=== PATIENT | male | born 1980 | race Asian ===

== ENCOUNTER 2017-04-10 23:04 | Inpatient (IN) | payer MEDICAID, OTHER ==
[~2017-04-10] VITALS: Ht 177.8 cm; Wt 131.4 kg
[2017-04-11] MEDS ORDERED: LABETALOL HCL 20MG INJ IV ONE
[2017-04-11 00:15] LABS: ADD SCAN DIFF NO
[2017-04-11 00:16] LABS: BASOPHILS % 0.3 % (0.0-2.0); EOSINOPHILS # 0.3 10^3/ul (0.0-0.5); EOSINOPHILS % 2.1 % (0.0-7.0); HEMATOCRIT 44.8 % (42.0-52.0); HEMOGLOBIN 15.5 g/dl (14.0-18.0); LYMPHOCYTES # 1.9 10^3/ul (0.8-2.9); LYMPHOCYTES % 13.5 % (15.0-51.0); MEAN CORPUSCULAR HGB CONC 34.6 g/dl (32.0-37.0); MEAN PLATELET VOLUME 10.2 fl (7.4-10.4); MONOCYTE # 1.1 10^3/ul (0.3-0.9); MONOCYTES % 7.8 % (0.0-11.0); NEUTROPHIL # 10.6 10^3/ul (1.6-7.5); NEUTROPHILS % 75.6 % (39.0-77.0); PLATELET COUNT 255 10^3/UL (140-415); RED BLOOD COUNT 5.53 10^6/ul (4.70-6.10); RED CELL DISTRIBUTION WIDTH 13.7 % (11.5-14.5); WHITE BLOOD COUNT 14.1 10^3/ul (4.8-10.8)
--- NOTE | 2017-04-11 00:16 | RADRPT ---
PROCEDURE: CT Brain without contrast. CLINICAL INDICATION: Headache TECHNIQUE: A CT of the brain was performed utilizing axial imaging from the skull base through the vertex without IV contrast. Multiplanar reformatted images were made. Images were reviewed on a rimidi workstation. The CTDIvol is 44.58 mGy and the DLP is 720.23 mGycm. One or more the following dose reduction techniques were utilized: Automated exposure control, adjus tment of the mA and / or kV according to patient's size, or use of iterative reconstruction techniqu e. COMPARISON: None FINDINGS: There is no intracranial hemorrhage, mass effect, or midline shift. No extra-axial fluid collection is seen. The ventricles and sulci are normal in size and configuration. The density of the brain is normal, and the high white matter differentiation appears well-preserved. The visualized paranasal sinuses and osseous structures are grossly unremarkable. IMPRESSION: 1. No evidence of acute intracranial pathology. 2. The brain is normal in appearance. RPTAT: HJES .Boubacar Faust MD, MD Date Time Electronically viewed and signed by .Boubacar Faust MD, on 04/11/2017 00:16 .S/
--- NOTE | 2017-04-11 00:16 | RADRPT ---
PROCEDURE: CHEST - 1 VIEW CLINICAL INDICATION: 37-year-old male with chest pain. TECHNIQUE: A single frontal AP supine portable view of the chest was performed. The images were r eviewed on a PACS workstation. COMPARISON: None. FINDINGS: The cardiomediastinal silhouette has a normal appearance. There is a shallow inspiration with mild e levation right hemidiaphragm. There is no evidence for an infiltrate. There is no evidence for lashae estive heart failure. There is no evidence for pneumothorax. The osseous structures are intact. IMPRESSION: No evidence for active cardiopulmonary disease. .Mc Cárdenas MD, MD Date Time Electronically viewed and signed by .Mc Cárdenas MD, on 04/11/2017 00:15 ./
[2017-04-11 00:26] LABS: INR 0.99; PROTIME 13.1 Sec (12.2-14.2)
[2017-04-11 00:27] LABS: PARTIAL THROMBOPLASTIN TIME 32.3 Sec (25.0-35.0)
[2017-04-11 00:32] LABS: ALBUMIN 4.7 g/dl (3.3-4.9); ALBUMIN/GLOBULIN RATIO 5.22; BILIRUBIN,INDIRECT 0.4 mg/dl (0-1.1); BILIRUBIN,TOTAL 0.4 mg/dl (0.2-1.3); CALCIUM 9.2 mg/dl (8.4-10.2); CREATININE 1.44 mg/dl (0.61-1.24); TOTAL PROTEIN 5.6 g/dl (6.1-8.1)
[2017-04-11 00:44] LABS: TROPONIN-I 0.069 ng/ml (0.00-0.12)
[2017-04-11 00:52] LABS: POTASSIUM 2.8 mmol/L (3.5-5.1)
[2017-04-11] MEDS ORDERED: ASPI-664 PO (01:25)
[2017-04-11] MEDS: POTASSIUM CHLORIDE 250 ML IVPB SCH ×2 (01:26→05:36)
[2017-04-11] MEDS ORDERED: SOD CHLORIDE 0.9% 100 ML ONE (01:41)
[2017-04-11] MEDS ORDERED: IOHEXOL 100 ML ONE (01:41)
[2017-04-11] MEDS ORDERED: hydrALAzine 20 MG INJ IV ONE (02:30)
--- NOTE | 2017-04-11 02:50 | RADRPT ---
PROCEDURE: CTA head and neck. CLINICAL INDICATION: Neck pain, headache. TECHNIQUE: Direct spiral 0.63 mm axial sections were obtained through the cervical and intracrania l vasculature with the use of 85 cc of Omnipaque 350 nonionic intravenous contrast material. Axial MIP, coronal, and sagittal reformations were obtained. The images were reviewed on a PACS workstatio n. CTDIvol: 4.12, 41.25, 19.54 mGy. DLP: 850.78 mGy-cm. COMPARISON: Brain CT performed earlier on the same date. FINDINGS: CTA neck: The branching pattern of the aortic arch is normal. The bilateral cervical carotid and swati tebral arteries are widely patent. No atherosclerotic plaque or dissection is identified. There is no aneurysmal dilatation of these vessels. CTA head: The bilateral ICAs, ACAs, MCAs, and meter inspector are widely patent. The vertebrobasilar system is patent. The visualized cerebellar arteries are unremarkable. No intracranial aneurysm or vascular malformation is seen. IMPRESSION: Unremarkable CT angiogram of the head and neck. Measurements of cervical internal carotid artery stenosis were performed according to NASCET criteri a, with reference to distal ICA diameter. RPTAT: HTAR .Jj Chang MD, Date Time Electronically viewed and signed by .jJ Chang MD, on 04/11/2017 02:50 .R/
--- NOTE | 2017-04-11 04:17 | ERA ---
ER Documentation Chief Complaint Date/Time DATE: 04/11/17 TIME: 04:16 Chief Complaint sudden neck pop then near syncope lasting 1 1/2 hrs, not feeling well HPI 37-year-old male who said he felt a "pop" in his neck. He said is been feeling like is going to pass out for the past hour and half since then. Noted to have severely elevated blood pressures. Patient has history of elevated blood pressure, however has not been on any meds and has not followed up with any primary care physician. Denies any chest pain. Denies any focal neurological complaint. Denies any other current issue. ROS All systems reviewed and are negative except as per history of present illness. Medications Home Meds Reported Medications Aspirin* (Aspirin* EC) 81 Mg Tablet.dr, 81 MG PO DAILY, TAB 04/11/17 Allergies Allergies: Coded Allergies: No Known Drug Allergies (Verified Allergy, Unknown, 04/10/17) PMhx/Soc History of Surgery: Yes (appendectomy, cholecystectomy) Hx Cardiac Disorders: Yes (HTN) Hx Alcohol Use: No Hx Substance Use: No Hx Tobacco Use: Yes Smoking Status: Current every day smoker Physical Exam Vitals Vital Signs Date Time Temp Pulse Resp B/P Pulse Ox O2 Delivery O2 Flow Rate FiO2 04/11/17 02:48 106 25 170/91 98 Room Air 04/11/17 02:04 96 27 191/117 96 Room Air 04/11/17 01:08 94 29 211/124 97 Room Air 04/11/17 00:05 106 22 212/128 99 Room Air 04/10/17 23:28 98.5 96 18 220/131 98 Physical Exam Const: [] Head: Atraumatic Eyes: Normal Conjunctiva ENT: Normal External Ears, Nose and Mouth. Neck: Full range of motion..~ No meningismus. Resp: Clear to auscultation bilaterally Cardio: Regular rate and rhythm, no murmurs Abd: Soft, non tender, non distended. Normal bowel sounds Skin: No petechiae or rashes Back: No midline or flank tenderness Ext: No cyanosis, or edema Neur: Awake and alert Psych: Normal Mood and Affect Result Diagram: 04/11/17 0001 04/11/17 0001 Results 24 hrs Laboratory Tests Test 04/11/17 00:01 White Blood Count 14.110^3/ul Red Blood Count 5.5310^6/ul Hemoglobin 15.5g/dl Hematocrit 44.8% Mean Corpuscular Volume 81.0fl Mean Corpuscular Hemoglobin 28.0pg Mean Corpuscular Hemoglobin Concent 34.6g/dl Red Cell Distribution Width 13.7% Platelet Count 88880^3/UL Mean Platelet Volume 10.2fl Neutrophils % 75.6% Lymphocytes % 13.5% Monocytes % 7.8% Eosinophils % 2.1% Basophils % 0.3% Nucleated Red Blood Cells % 0.0/100WBC Neutrophils # 10.610^3/ul Lymphocytes # 1.910^3/ul Monocytes # 1.110^3/ul Eosinophils # 0.310^3/ul Basophils # 0.010^3/ul Nucleated Red Blood Cells # 0.010^3/ul Prothrombin Time 13.1Sec Prothrombin Time Ratio 1.0 INR International Normalized Ratio 0.99 Activated Partial Thromboplast Time 32.3Sec Sodium Level 138mmol/L Potassium Level 2.8mmol/L Chloride Level 102mmol/L Carbon Dioxide Level 26mmol/L Anion Gap 13 Blood Urea Nitrogen 15mg/dl Creatinine 1.44mg/dl Glucose Level 227mg/dl Calcium Level 9.2mg/dl Total Bilirubin 0.4mg/dl Direct Bilirubin 0.00mg/dl Indirect Bilirubin 0.4mg/dl Aspartate Amino Transf (AST/SGOT) 32IU/L Alanine Aminotransferase (ALT/SGPT) 39IU/L Alkaline Phosphatase 75IU/L Troponin I 0.069ng/ml B-Type Natriuretic Peptide 219PG/ML Total Protein 5.6g/dl Albumin 4.7g/dl Globulin 0.90g/dl Albumin/Globulin Ratio 5.22 Current Medications Medications (Trade) Dose Ordered Sig/Gerard Route PRN Reason Start Time Stop Time Status Last Admin Dose Admin Labetalol HCl 20 mg 20 mg ONCE ONCE IV 04/11/17 00:00 04/11/17 00:01 DC 04/11/17 00:26 Potassium Chloride (KCl 40 MEQ/250 ML NS) 250 ml @ 62.5 mls/hr Q4H IVPB 04/11/17 01:00 04/11/17 08:59 04/11/17 01:26 Hydralazine HCl (Apresoline) 20 mg ONCE ONCE IV 04/11/17 02:30 04/11/17 02:31 DC 04/11/17 02:26 Procedures/MDM EKG: Rate/Rhythm: Normal Sinus Rhythm QRS, ST, T-waves: No changes consistent w/ acute ischemia Impression: No evidence of ischemia or arrhythmia Chest X-ray 1V Interpreted by me: Soft Tissue: No acute abnormalities Bones: No acute abnormalities Mediastinum/Cardiac Silhouette/Lungs: No acute abnormalities CT of the head, CT angiogram of the brain and CT angiogram neck were negative Medical decision-makin-year-old male with severe hypertensive emergency. Patient will be admitted to telemetry to hospitalist. Critical Care: Time: 45 minutes Treatments/Evaluations: Close monitoring and treatment of unstable vital signs, cardiorespiratory, and neurologic status, while maintaining tight balance of fluid, respiratory, and cardiac interventions. Departure Diagnosis: Primary Impression: Hypertensive emergency Additional Impressions: Acute renal failure Qualified Code: N17.9 - Acute renal failure, unspecified acute renal failure type Hypokalemia Condition: Serious PHILIP FULLER Apr 11, 2017 04:17
--- NOTE | 2017-04-11 10:29 | HP ---
Date/Time of Note Date/Time of Note DATE: 04/11/17 TIME: 10:29 Assessment/Plan VTE Prophylaxis VTE Prophylaxis Intervention: SCD's Lines/Catheters IV Catheter Type (from Nrs): Saline Lock Assessment/Plan Assessment/Plan A: 37 yo M with previous h/o htn presents with c/o headache in the setting of markedly elevated BP. Clinical scenario consistent with hypertensive urgency as no evidence of end organ damage at this time (CT head without evidence of stroke ) P: #HTN urgency: resume home meds slowly, PRN clonidine in the interim -given c/o snoring will obtain nocturnal pulse ox as BRITTANY eval as this is a risk factor for HTN -check UA for blood and protein #elevated Cr: baseline unk -PO fluids -check UA for protein #hypokalemia: etio unclear replete and recheck #preDM -check a1c #tob abuse: declined NRT sw consult for help with insurance dispo pending improvement in BP, anticipate 2 midnight length of stay HPI/ROS Admit Date/Time Admit Date/Time Hx of Present Illness Chief complaint: dizziness HPI: 37 yo M with pmhx HTN, preDM, obesity, tobacco abuse, snoring presents with 1 day of neck pain, dizziness. Pt states he was with his mom in the backyard smoking a cigarette last night when he felt a "snap" in his neck. After this he was able to walk but felt a little dizzy. Pt waited till his mother went to sleep then called EMS. On arrival to the ER pt's BP noted to be quite elevated with SBP 200s. Of note, pt states he had previously been on 3 anti hypertensives (metoprolol XL , lisinopril, and norvasc) but that he's been off of them for a year since he lost his job and his insurance. Pt currently reports a headache. No SOB, +monthly episodes of L sided chest discomfort though none currently, no dysuria or hematuria, no numbness/tingling/ weakness. ROS 10pROS neg except as per HPI PMH/Family/Social Past Medical History PMHx: HTN, preDM, obesity, tob abuse Social History smokes 10 cigs/daily Smoking Status: Current every day smoker Exam/Review of Systems Vital Signs Vitals Vital Signs Date Time Temp Pulse Resp B/P Pulse Ox O2 Delivery O2 Flow Rate FiO2 04/11/17 05:15 102 21 159/101 96 Room Air 04/10/17 23:28 98.5 Exam Exam pleasant, nad laying in bed CN 2-12 intact bl 5/5 strength bl UEs and LEs no mrg lungs clear obese no rashes no le edema responds to questions appropriately labs: Cr mid 1s, K low, gluc 220s Imaging: CT head/neck without bleed or evidence of infarct Labs Result Diagram: 04/11/17 0001 04/11/17 0001 KRISSY BRAVO MD Apr 11, 2017 10:29
[2017-04-11] MEDS ORDERED: DOCUSATE SODIUM 100 MG CAP PO PRN (10:30)
[2017-04-11] MEDS ORDERED: NA PHOSPHATE/BIPHOS 133 ML ENEMA PR PRN (10:30)
[2017-04-11] MEDS ORDERED: BISACODYL (EC) 5 MG TAB PO PRN (10:30)
[2017-04-11] MEDS ORDERED: NACL 0.9% 3 ML SYG IV SCH (10:30)
[2017-04-11] MEDS ORDERED: MAGNESIUM HYDROXIDE 30ML CUP PO PRN (10:30)
[2017-04-11] MEDS ORDERED: BISACODYL 10 MG SUPP PR PRN (10:30)
[2017-04-11 11:21] VITALS: TEMP 98.5
[2017-04-11] MEDS: HEPARIN 5,000 UNIT/0.5 ML VIAL SC SCH ×2 (13:48→21:51)
[2017-04-11] MEDS ORDERED: NIFEdipine (XL) 30 MG TAB PO SCH (15:00)
[2017-04-11 15:46] VITALS: Ht 177.8 cm; Wt 131.4 kg
[2017-04-11 16:03] VITALS: PULSE 96
[2017-04-11 16:22] VITALS: BP 189/115; PULSE 95
[2017-04-11] MEDS ORDERED: ACETAMINOPHEN 325 MG TAB PO PRN ×2 (17:30→21:30)
[2017-04-11 19:48] VITALS: BP 204/116; RESP 20
[2017-04-11 20:01] VITALS: PULSE 101
[2017-04-11 20:09] VITALS: BP 145/89
[2017-04-11] MEDS: HYDROCODONE/APAP (5/325) TAB PO PRN (20:13)
[2017-04-12] VITALS (16 sets, daily range): BP systolic 153–187; BP diastolic 82–122; PULSE 65–78; RESP 16–20
[2017-04-12] MEDS: HEPARIN 5,000 UNIT/0.5 ML VIAL SC SCH ×3 (05:48→21:37)
[2017-04-12] MEDS: HYDROCODONE/APAP (5/325) TAB PO PRN ×2 (05:51→23:43)
[2017-04-12 08:06] LABS: CALCIUM 9.5 mg/dl (8.4-10.2); CREATININE 1.33 mg/dl (0.61-1.24); POTASSIUM 3.4 mmol/L (3.5-5.1)
[2017-04-12] MEDS: LISINOPRIL 10 MG TAB PO SCH (09:00)
[2017-04-12] MEDS: ASPIRIN (EC) 81 MG TAB PO SCH (09:00)
[2017-04-12] MEDS: METOPROLOL (XL) 25 MG TAB PO SCH (09:01)
--- NOTE | 2017-04-12 12:23 | RADRPT ---
Echocardiogram Report Patient Name: ROBE RODRIGUEZ Gender: Male Date: 1980 Study Date: 11-Apr-2017 Administration Internship: [facility] Location: [facility] Ref. Physician: KRISSY BRAVO Quality: Technically Difficult Study Procedures: Transthoracic echocardiogram with complete 2D, M-Mode, and doppler examination. Indications: Syncope. 2D/M Mode Doppler Measurement Value Normal Ranges Measurement Value Normal Ranges LVIDd 2D 5.9 3.5 - 5.6 cm AV Peak Anup 1.5 m/sec LVIDs 2D 4.2 2.1 - 4.1 cm AV Peak PG 9.0 mmHg LVPWd 2D 1.8 0.6 - 1.1 cm LVOT Peak Anup 0.9 m/sec IVSd 2D 1.9 0.6 - 1.1 cm LVOT Peak PG 3.2 mmHg AoR Diam 2D 2.9 2.0 - 3.7 cm MV E Peak Anup 0.7 m/sec EDV 2D 171.1 cm3 MV A Peak Anup 0.9 m/sec ESV 2D 74.0 cm3 MV E/A 0.8 LA Dimen 2D 4.5 2.3 - 4.0 cm MV Decel Time 77 msec MV Decel Nuckolls 10 MV E/A 0.8 Findings Left Ventricle: Lower limits of normal systolic function. Moderate to severe concentric left ventricular hypertrophy. Mild enlargement of left ventricle cavity. Ejection fraction is visually estimated at 50 %. Tissue Doppler/Mitral Doppler indices are consistent with impaired relaxation (Stage I diastolic dysfunction). Right Ventricle: Normal right ventricular size. Normal right ventricular systolic function. Left Atrium: There is mild enlargement of left atrium. Right Atrium: The right atrium is normal in size. Mitral Valve: Mitral valve leaflets appear mildly thickened. Trace mitral regurgitation. Aortic Valve: Normal appearance of the aortic valve. No significant aortic stenosis or insufficiency. Tricuspid Valve: Normal appearance and function of the tricuspid valve with trace physiologic regurgitation. Pericardium: Normal pericardium with no significant pericardial effusion. Aorta: Normal aortic root. IVC: Normal size and normal respiratory collapse consistent with normal right atrial pressure. Conclusions 1.Lower limits of normal systolic function. Moderate to severe concentric left ventricular hypertrophy. Mild enlargement of left ventricle cavity. Ejection fraction is visually estimated at 50 %. Tissue Doppler/Mitral Doppler indices are consistent with impaired relaxation (Stage I diastolic dysfunction). 2.Normal right ventricular size. Normal right ventricular systolic function. 3.There is mild enlargement of left atrium. 4.The right atrium is normal in size. 5.No significant valvular stenosis or regurgitation seen. 6.Normal pericardium with no significant pericardial effusion. Electronically Signed By: Genaro Delgado 12-Apr-2017 12:23:07 -0700 Patient Name: ROBE RODRIGUEZ Study Date: 11-Apr-[id number]
[2017-04-12] MEDS ORDERED: AMLODIPINE 10 MG TAB PO ONE (14:00)
[2017-04-12] MEDS ORDERED: MECLIZINE 25 MG TAB PO PRN (14:00)
[2017-04-12] MEDS ORDERED: POTASSIUM CHLORIDE (SR) 20 MEQ TAB PO STA (15:57)
--- NOTE | 2017-04-12 17:13 | PN ---
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 #hypokalemia: etio unclear replete and recheck #preDM -check a1c #tob abuse: declined NRT KCl 40mEQ PO X1 for hypokalemia, Cervical spine series for neck pain and dizziness BP stable, start amlodipine 10mg po daily ffor better pain control SW saw pt for insurance application Subjective 24 Hr Interval Summary Free Text/Dictation c/o dizzines, headache, BP stable, C/o neck pain Exam/Review of Systems Vital Signs Vitals Vital Signs Date Time Temp Pulse Resp B/P Pulse Ox O2 Delivery O2 Flow Rate FiO2 04/12/17 16:01 73 04/12/17 15:41 98.4 19 172/111 98 04/12/17 05:00 Room Air Intake and Output 04/11/17 04/11/17 04/12/17 15:00 23:00 07:00 Intake Total 240 ml 650 ml Output Total 250 ml Balance -10 ml 650 ml Results Result Diagram: 04/11/17 0001 04/12/17 0602 Results 24 hrs Laboratory Tests Test 04/12/17 06:02 Sodium Level 142 Potassium Level 3.4 L Chloride Level 104 Carbon Dioxide Level 30 Anion Gap 11 Blood Urea Nitrogen 16 Creatinine 1.33 H Glucose Level 126 # Hemoglobin A1c 6.6 H Calcium Level 9.5 Medications Medications Current Medications Docusate Sodium (Colace) 100 mg Q12H PRN PO CONSTIPATION; Start 04/11/17 at 10: 30 Magnesium Hydroxide (Milk Of Mag) 30 ml DAILY PRN PO CONSTIPATION; Start at 10:30 Bisacodyl (Dulcolax) 5 mg DAILY PRN PO CONSTIPATION; Start 04/11/17 at 10:30 Bisacodyl (Dulcolax Supp) 10 mg DAILY PRN IN CONSTIPATION; Start 04/11/17 at 10 :30 Sodium Biphosphate/ Sodium Phosphate (Fleet Enema) 133 ml DAILY PRN IN CONSTIPATION; Start 04/11/17 at 10:30 Heparin Sodium (Porcine) (Heparin (5000 Units/0.5 ml)) 5,000 unit Q8 SC Last administered on 04/12/17 14:24; Admin Dose 5,000 UNIT; Start 04/11/17 at 14:00 Aspirin (Halfprin) 81 mg DAILY PO Last administered on 04/12/17 09:00; Admin Dose 81 MG; Start 04/12/17 at 09:00 Clonidine (Catapres) 0.1 mg Q6H PRN PO HTN Last administered on 04/11/17 18:05 ; Admin Dose 0.1 MG; Start 04/11/17 at 17:30 Lisinopril (Zestril) 10 mg DAILY PO Last administered on 04/12/17 09:00; Admin Dose 10 MG; Start 04/12/17 at 09:00 Metoprolol Succinate (Toprol Xl) 12.5 mg DAILY PO Last administered on 09:01; Admin Dose 12.5 MG; Start 04/12/17 at 09:00 Acetaminophen (Tylenol Tab) 650 mg Q4H PRN PO PAIN AND OR ELEVATED TEMP; Start 04/11/17 at 21:30 Acetaminophen/ Hydrocodone Bitart ([place] (5/325)) 1 tab Q6H PRN PO PAIN LEVEL 6 -10 Last administered on 04/12/17 05:51; Admin Dose 1 TAB; Start 04/11/17 at 19 :00 Amlodipine Besylate (Norvasc) 10 mg DAILY PO ; Start 04/13/17 at 09:00 Meclizine HCl (Antivert) 25 mg TID PRN PO dizziness ; Start 04/12/17 at 14:00 SYLVIA ESPINOZA MD Apr 12, 2017 17:13
[2017-04-13 00:18] VITALS: BP 143/94; RESP 18
[2017-04-13] MEDS: HEPARIN 5,000 UNIT/0.5 ML VIAL SC SCH ×2 (06:08→14:00)
[2017-04-13 07:12] LABS: CALCIUM 9.6 mg/dl (8.4-10.2); CREATININE 1.49 mg/dl (0.61-1.24); POTASSIUM 3.2 mmol/L (3.5-5.1)
[2017-04-13] MEDS: LISINOPRIL 10 MG TAB PO SCH (08:27)
[2017-04-13] MEDS: ASPIRIN (EC) 81 MG TAB PO SCH (08:27)
[2017-04-13] MEDS: METOPROLOL (XL) 25 MG TAB PO SCH (08:28)
[2017-04-13 08:49] VITALS: BP 151/94; RESP 18
[2017-04-13] MEDS ORDERED: AMLODIPINE 10 MG TAB PO SCH (09:00)
--- NOTE | 2017-04-13 10:07 | RADRPT ---
PROCEDURE: XR Cervical Spine. CLINICAL INDICATION: Trauma. TECHNIQUE: AP, lateral and odontoid views of the cervical spine were performed. The images were re viewed on a PACS workstation. COMPARISON: CTA neck 04/11/2017 FINDINGS: There is trace anterolisthesis of C4 on C5 and C5 on C6. There are small anterior osteophytes with mild to moderate narrowing at C5-6 and C6-7. The vertebral body height and osseous mineralization a re normal. There is no evidence of fracture or dislocation. There is diffuse mild to moderate facet arthropathy. There is preservation of the remaining intervertebral disc spaces. There are no abnorma l calcifications. The prevertebral soft tissues are normal. No radiopaque foreign bodies are identif ied. IMPRESSION: 1. Mild to moderate degenerative disc disease at C5-6 and C6-7 with grade 1 anterolisthesis of C5 o n C6. 2. Diffuse mild to moderate facet spondylosis. 3. No acute fracture. RPTAT: DD .Karel Saldana MD, MD Date Time Electronically viewed and signed by .Karel Saldana MD, on 04/13/2017 10:06 .S/
[2017-04-13] MEDS ORDERED: POTASSIUM CHLORIDE (SR) 20 MEQ TAB PO STA (13:52)
--- NOTE | 2017-04-13 14:06 | PDOCDIS ---
Discharge Instructions CONDITION Patient Condition: Good HOME CARE INSTRUCTIONS: Special Diet: low salt diet ACTIVITY: Activity Restrictions: Slowly Increase Activity Rest between Activity Avoid heavy lifting Avoid Heavy Housework FOLLOW UP/APPOINTMENTS Appointments follow up with his own PMD in 1-2 week. Follow up with Dr.kalpesh Espinoza In 2-3 weeks SYLVIA ESPINOZA MD Apr 13, 2017 14:06
[2017-04-13] MEDS ORDERED: AMLO-147 PO (14:07)
[2017-04-13] MEDS ORDERED: METO25TA7 PO (14:07)
[2017-04-13] MEDS ORDERED: LISI10TA2 PO (14:07)
== END 2017-04-13 16:44 | disposition home or self-care (01) | DRG 305 ==
LOC: E/R 23:04 → MS4 04-11 05:28 → PP2 04-12 23:21
PROVIDERS: ADMIT Family Medicine; ATTEND Family Medicine
DX: I16.0 Hypertensive urgency (principal); N17.9 Acute kidney failure, unspecified; Z68.41 Body mass index [BMI] 40.0-44.9, adult; I10 Essential (primary) hypertension; F17.210 Nicotine dependence, cigarettes, uncomplicated; E87.6 Hypokalemia; R73.03 Prediabetes; E66.9 Obesity, unspecified; R94.4 Abnormal results of kidney function studies; Z79.82 Long term (current) use of aspirin
CPT/HCPCS: 36415; 70450; 70496; 70498; 71010; 72040; 80048; 80053; 83036; 83880; 84484; 85025; 85610; 85730; 93005; 93306; 96372; 96374; 96375; 96376; J0360; J1644; J3480; Q9967